=== PATIENT | female | born 1990 | race Caucasian/White ===

== ENCOUNTER 2017-01-03 14:42 | Emergency (ER) | payer SELFPAY ==
[2017-01-03] MEDS ORDERED: IBUPROFEN 600 MG TABLET PO ONE (16:21)
--- NOTE | 2017-01-03 16:28 | ER Document Report ---
ED Oral Problem - General Chief Complaint: Sore Throat Stated Complaint: SORE THROAT Information source: Patient TRAVEL OUTSIDE OF THE [place] IN LAST 30 DAYS: No - HPI Patient complains to provider of: Sore throat Onset: Yesterday Quality of pain: Achy Severity: Moderate Sore throat: Moderate Associated symptoms: denies: None, Chills, Cough, Decreased appetite, Dental decay, Difficulty speaking, Drainage, Drooling, Earache, Facial pain, Fever, Headache, Jaw pain, Short of breath, Sweaty, Toothache, Tongue swelling, Unable to swallow, White patches in mouth Notes: Patient arrives with complaints of sore throat. The sore throat started yesterday. She has been seen with her son who has similar symptoms as well. He has fever and sore throat started approximately 3 or 4 days ago. She denies any nasal congestion or cough. She denies any fevers. No rash. No difficulty breathing or swallowing. She denies any headache, blurred vision, numbness, tingling, weakness. No chest pain or shortness of breath. No abdominal pain. No nausea, vomiting, diarrhea. She has no other complaints at this time. - Related Data Allergies/Adverse Reactions: No Known Allergies Allergy (Verified 01/03/17 15:27) Past Medical History - Social History Smoking Status: Never Smoker Chew tobacco use (# tins/day): No Frequency of alcohol use: Occasional Drug Abuse: None Family History: Reviewed & Not Pertinent - Past Medical History Cardiac Medical History: Denies: Hx Coronary Artery Disease, Hx Hypertension Pulmonary Medical History: Reports: Hx Asthma, Hx Bronchitis, Hx Pneumonia Denies: Hx Tuberculosis Neurological Medical History: Denies: Hx Seizures Endocrine Medical History: Denies: Hx Diabetes Mellitus Type 1, Hx Diabetes Mellitus Type 2 Renal/ Medical History: Denies: Hx Peritoneal Dialysis Past Surgical History: Reports: Hx Appendectomy - 08/19/2010, Hx Hysterectomy. Denies: Hx Pacemaker - Immunizations Immunizations up to date: Yes Hx Diphtheria, Pertussis, Tetanus Vaccination: Yes Hx Pneumococcal Vaccination: 03/21/00 Review of Systems - Review of Systems -: Yes All other systems reviewed and negative Physical Exam - Vital signs Vitals: Temp Pulse Resp BP Pulse Ox 98.7 F 108 H 18 112/80 100 01/03/17 15:27 01/03/17 15:27 01/03/17 15:27 01/03/17 15:27 01/03/17 15:27 - Notes Notes: GENERAL: alert, cooperative, nontoxic, no distress. HEAD: normocephalic, atraumatic EYES: conjunctiva pink without discharge, no external redness or swelling. EARS: no external swelling, no external redness, no mastoid redness, swelling, tenderness. Ear canals are clear without swelling or drainage. TMs pearly robison , no redness, no bulging, normal landmarks, no perforation. NOSE: atraumatic, no external swelling. clear rhinorrhea noted. MOUTH/THROAT: mucous membranes moist and pink, posterior pharynx with erythema. Mild tonsillar swelling bilaterally. No exudate. Uvula is midline. No peritonsillar abscess. No trismus or drooling. NECK: soft, supple, full range of motion, no meningismus. Bilateral anterior cervical lymphadenopathy. CHEST: no distress, lungs clear and equal throughout. No wheezing, rales, rhonchi. CARDIAC: regular rate and rhythm, no murmur, normal capillary refill, normal pulses. No peripheral edema noted. BACK: full range of motion, no CVA tenderness. EXTREMITIES: full range of motion of all extremities. No redness, no swelling. NEURO: alert and oriented -3, no focal deficits, full range of motion of all extremities. PYSCH: appropriate mood, affect. Patient is cooperative. SKIN: pink, warm, dry, no rash. Course - Re-evaluation Re-evalutation: 01/03/17 17:43 Patient is nontoxic appearing with stable vitals. She has a positive strep. Her son is being seen as well as positive for strep as well. She will be given a shot of Bicillin L-A strep pharyngitis. DC home with instructions to take Tylenol Motrin as needed for pain. Drink plenty of fluids. Follow-up if not better in 3-5 days, sooner for increased pain, fever, difficulty breathing or swallowing, persistent vomiting, or any further concerns. The patient's emergency department workup and current diagnosis were explained to the patient and or family. Follow-up instructions were provided. Medications if prescribed were discussed. Instructions for when to return to the emergency department including specific worrisome symptoms were discussed with the patient and/or family. - Vital Signs Vital signs: Temp Pulse Resp BP Pulse Ox 98.7 F 108 H 18 112/80 100 01/03/17 15:27 01/03/17 15:27 01/03/17 15:27 01/03/17 15:27 01/03/17 15:27 Discharge - Discharge Clinical Impression: Strep pharyngitis Condition: Stable Disposition: HOME, SELF-CARE Instructions: Strep Throat (OM) Additional Instructions: Tylenol and Motrin as needed for pain. Drink plenty of fluids. Change her toothbrush in 48 hours. Follow-up if not better in 3-5 days, sooner for increased pain, fever, difficulty breathing or swallowing, persistent vomiting, or any further concerns. Forms: Return to Work
[2017-01-03] MEDS ORDERED: PENICILLIN G BENZATHINE 1.2 MILLION UNIT/2 ML DISP.SYRIN IM ONE (17:43)
[2017-01-03 19:50] VITALS: BP 107/79
== END 2017-01-03 19:18 | disposition home or self-care (01) ==
LOC: ER 14:42
DX: J02.0 Streptococcal pharyngitis (principal)
CPT/HCPCS: 99283; 96372; 87880; J0561

== ENCOUNTER 2017-09-14 20:28 | Emergency (ER) | payer MEDICAID ==
[2017-09-14] MEDS ORDERED: IPRATROPIUM/ALBUTEROL 0.5-2.5 MG/3 ML AMPUL NEB ONE (22:21)
--- NOTE | 2017-09-14 22:24 | ER Document Report ---
HPI - HPI Patient complains to provider of: Cough Onset: Last week Onset/Duration: Persistent Quality of pain: Achy Pain Level: 2 Context: Patient presents complaining of nonproductive cough for the past week with congestion. Patient went to an urgent care yesterday and was prescribed Augmentin, Tessalon Perles as well as a steroid medication. Patient denies any fever. Patient complains of persistent cough that does not allow her to rest. Patient denies any bed rest, immobilization or recent travel. Associated Symptoms: Nonproductive cough, Rhinnorhea. denies: Earache, Fever, Sore throat Exacerbated by: Denies Relieved by: Denies Similar symptoms previously: No Recently seen / treated by doctor: Yes - ROS ROS below otherwise negative: Yes Systems Reviewed and Negative: Yes All other systems reviewed and negative - CONSTITUTIONAL Constitutional: DENIES: Fever, Chills - EENT EENT: REPORTS: Nasal Drainage-Clear, Congestion - CARDIOVASCULAR Cardiovascular: DENIES: Chest pain - RESPIRATORY Respiratory: DENIES: Trouble Breathing, Coughing - GASTROINTESTINAL Gastrointestinal: DENIES: Abdominal Pain, Nausea, Patient vomiting, Diarrhea - REPRODUCTIVE Reproductive: DENIES: : - MUSCULOSKELETAL Musculoskeletal: DENIES: Back Pain, Neck Pain - DERM Skin Color: Normal Skin Problems: None Past Medical History - General Information source: Patient - Social History Smoking Status: Never Smoker Frequency of alcohol use: Occasional Drug Abuse: None Occupation: [employer] Family History: Reviewed & Not Pertinent - Past Medical History Cardiac Medical History: Denies: Hx Coronary Artery Disease, Hx Hypertension Pulmonary Medical History: Reports: Hx Asthma, Hx Bronchitis, Hx Pneumonia Denies: Hx Tuberculosis Neurological Medical History: Denies: Hx Seizures Endocrine Medical History: Denies: Hx Diabetes Mellitus Type 1, Hx Diabetes Mellitus Type 2 Renal/ Medical History: Denies: Hx Peritoneal Dialysis Past Surgical History: Reports: Hx Appendectomy - 08/19/2010, Hx Hysterectomy. Denies: Hx Pacemaker - Immunizations Immunizations up to date: Yes Hx Diphtheria, Pertussis, Tetanus Vaccination: Yes Hx Pneumococcal Vaccination: 03/21/00 Vertical Provider Document - CONSTITUTIONAL Agree With Documented VS: Yes Exam Limitations: No Limitations General Appearance: WD/WN, No Apparent Distress - INFECTION CONTROL TRAVEL OUTSIDE OF THE [place] IN LAST 30 DAYS: No - HEENT HEENT: Atraumatic, Normal ENT Exam, Normocephalic - NECK Neck: Normal Inspection, Supple. negative: Lymphadenopathy-Left, Lymphadenopathy-Right - RESPIRATORY Respiratory: No Respiratory Distress, Rhonchi - CARDIOVASCULAR Cardiovascular: Regular Rate, Regular Rhythm, No Murmur. negative: Tachycardia - BACK Back: Normal Inspection - MUSCULOSKELETAL/EXTREMETIES Musculoskeletal/Extremeties: MAEW - NEURO Level of Consciousness: Awake, Alert, Appropriate Motor/Sensory: No Motor Deficit - DERM Integumentary: Warm, Dry, No Rash Course - Re-evaluation Re-evalutation: 09/15/17 00:41 Respirations unlabored. Patient nontoxic in appearance. X-ray without any findings worrisome for pneumonia. Will treat symptomatically. Patient encouraged to continue the use of her steroid medication that she was previously prescribed. 09/15/17 01:00 Patient reports cough has markedly improved after lidocaine nebulizer. - Vital Signs Vital signs: Temp Pulse Resp BP Pulse Ox 99.0 F 80 18 120/65 98 09/14/17 20:35 09/14/17 20:35 09/14/17 20:35 09/14/17 20:35 09/14/17 20:35 - Diagnostic Test Radiology reviewed: Image reviewed, Reports reviewed Discharge - Discharge Clinical Impression: Bronchitis Condition: Stable Disposition: HOME, SELF-CARE Instructions: Bronchitis (OM), Inhaled Bronchodilators (OM) Additional Instructions: Return immediately for any new or worsening symptoms Followup with your primary care provider, call tomorrow to make a followup appointment Continue your prescription medications as previously prescribed. Prescriptions: Albuterol Sulfate [Ventolin Hfa] 2 puff IH Q4HP PRN #17 gm PRN Reason: Forms: Return to Work Referrals: ROHIT CHILD MD [Primary Care Provider] - Follow up tomorrow
--- NOTE | 2017-09-14 23:25 | RADIOLOGY REPORT (SQ) ---
EXAM DESCRIPTION: XR CHEST 2 VIEWS COMPLETED DATE/TME: 09/14/2017 22:21 CLINICAL HISTORY: 27 years, Female, cough COMPARISON: 06/08/2012 NUMBER OF VIEWS: TECHNIQUE: LIMITATIONS: None. FINDINGS: IMPRESSION: 2010 [facility] [employer]- All Rights Reserved
[2017-09-14] MEDS ORDERED: LIDOCAINE 0.5% INJ-PF (5 MG/ML) 50 ML SDV NEB ONE (23:34)
[2017-09-15 02:15] VITALS: BP 113/56
== END 2017-09-15 01:50 | disposition home or self-care (01) ==
LOC: ER 20:28
DX: J45.909 Unspecified asthma, uncomplicated (principal); R05 Cough; R09.81 Nasal congestion; R09.89 Other specified symptoms and signs involving the circulatory and respiratory systems; J34.89 Other specified disorders of nose and nasal sinuses; Z79.899 Other long term (current) drug therapy
CPT/HCPCS: 94640 ×2; 99283; 71046; J3490; J7620

== ENCOUNTER 2018-03-27 09:54 | Emergency (ER) | payer SELFPAY ==
[2018-03-27] MEDS ORDERED: ONDANSETRON HCL INJ/PF 4 MG/2 ML SDV IV ONE (10:22)
[2018-03-27] MEDS ORDERED: RINGERS SOLUTION,LACTATED 1,000 ML IV ONE (10:22)
--- NOTE | 2018-03-27 10:24 | ER Document Report ---
ED Medical Screen (RME) - General Chief Complaint: Vomiting Stated Complaint: VOMITING, BURRED VISION Time Seen by Provider: 03/27/18 10:12 Notes: RAPID MEDICAL EVALUATION DISCLOSURE I have seen this patient as part of a Rapid Medical Evaluation and, if applicable, placed any initially appropriate orders. The patient will be seen and fully evaluated, including a full history and physical exam, by a provider (in Main ED or Fast Track) when a room becomes available. 27-year-old female here with complaints of lower abdominal pain, nausea vomiting (ongoing for several weeks now), and since yesterday some vaginal spotting/dysuria. She believes she is 10 weeks however she has not yet seen an CERTIFIED REGISTERED [facility]. [facility] she has been vomiting so much she came here because that she felt like she might be dehydrated. She has not tried anything for the symptoms. Reports that she has not yet had an ultrasound. EXAM CTAB RRR Mild left/right lower quadrant and suprapubic TTP No peritoneal signs TRAVEL OUTSIDE OF THE [place] IN LAST 30 DAYS: No - Related Data Allergies/Adverse Reactions: No Known Allergies Allergy (Verified 03/27/18 09:59) Past Medical History - Social History Chew tobacco use (# tins/day): No Frequency of alcohol use: None Drug Abuse: None - Past Medical History Cardiac Medical History: Denies: Hx Coronary Artery Disease, Hx Hypertension Pulmonary Medical History: Reports: Hx Asthma, Hx Bronchitis, Hx Pneumonia Denies: Hx Tuberculosis Neurological Medical History: Denies: Hx Seizures Endocrine Medical History: Denies: Hx Diabetes Mellitus Type 1, Hx Diabetes Mellitus Type 2 Renal/ Medical History: Denies: Hx Peritoneal Dialysis Past Surgical History: Reports: Hx Appendectomy - 08/19/2010, Hx Hysterectomy. Denies: Hx Pacemaker - Immunizations Immunizations up to date: Yes Hx Diphtheria, Pertussis, Tetanus Vaccination: Yes Physical Exam - Vital signs Vitals: Temp Pulse Resp BP Pulse Ox 98.4 F 89 18 114/62 100 03/27/18 10:16 01/07/19 10:16 03/27/18 10:16 03/27/18 10:16 03/27/18 10:16 Course - Vital Signs Vital signs: Temp Pulse Resp BP Pulse Ox 98.4 F 89 18 114/62 100 03/27/18 10:16 03/27/18 10:16 03/27/18 10:16 03/27/18 10:16 03/27/18 10:16 Doctor's Discharge - Discharge Referrals: ROHIT CHILD MD [Primary Care Provider] - Follow up as needed
--- NOTE | 2018-03-27 10:58 | ER Document Report ---
ED GI/ - General Mode of Arrival: Ambulatory Information source: Patient TRAVEL OUTSIDE OF THE [place] IN LAST 30 DAYS: No <HAIDER PENDLETON - Last Filed: 03/27/18 12:50> <KATRINA GONZALEZ - Last Filed: 03/27/18 14:16> - General Chief Complaint: Vomiting Stated Complaint: VOMITING, BURRED VISION Time Seen by Provider: 03/27/18 10:12 Notes: 27-year-old female who presents to the emergency department today with complaints of a x3-4 week history of vomiting increasing over the last x2 weeks. Patient states even if she does not eat she is still having dry heaves. Patient states the vomiting seems to be worse in the morning and at night and subsides during the day. Patient complains of upper and lower abdominal pain. Patient states yesterday she noticed some vaginal spotting as there was "some light pink" when wiping. (HAIDER PENDLETON) - Related Data Allergies/Adverse Reactions: No Known Allergies Allergy (Verified 03/27/18 09:59) Past Medical History - General Information source: Patient - Social History Smoking Status: Never Smoker Cigarette use (# per day): No Chew tobacco use (# tins/day): No Frequency of alcohol use: None Drug Abuse: None Lives with: Family Family History: Reviewed & Not Pertinent Patient has suicidal ideation: No Patient has homicidal ideation: No Pulmonary Medical History: Reports: Hx Asthma, Hx Bronchitis, Hx Pneumonia Past Surgical History: Reports: Hx Appendectomy - 08/19/2010, Hx Hysterectomy - Immunizations Immunizations up to date: Yes Hx Diphtheria, Pertussis, Tetanus Vaccination: Yes Hx Pneumococcal Vaccination: 03/21/00 <HAIDER PENDLETON - Last Filed: 03/27/18 12:50> Review of Systems - Review of Systems Constitutional: No symptoms reported EENT: No symptoms reported Cardiovascular: No symptoms reported Respiratory: No symptoms reported Gastrointestinal: See HPI, Vomiting Genitourinary: No symptoms reported Female Genitourinary: See HPI, , Vaginal bleeding - spotting -- "light pink when wiping" Musculoskeletal: No symptoms reported Skin: No symptoms reported Hematologic/Lymphatic: No symptoms reported Neurological/Psychological: No symptoms reported -: Yes All other systems reviewed and negative <HAIDER PENDLETON - Last Filed: 03/27/18 12:50> Physical Exam <HAIDER PENDLETON - Last Filed: 03/27/18 12:50> - Vital signs Vitals: Temp Pulse Resp BP Pulse Ox 98.4 F 89 18 114/62 100 03/27/18 10:16 03/27/18 10:16 03/27/18 10:16 03/27/18 10:16 03/27/18 10:16 - Notes Notes: Physical Exam: General: Alert, appears well. HEENT: Normocephalic. Atraumatic. PERRL. Extraocular movements intact. Oropharynx clear. Dry mucous membranes. Neck: Supple. Non-tender. Respiratory: No respiratory distress. Clear and equal breath sounds bilaterally. Cardiovascular: Regular rate and rhythm. Abdominal: Mild epigastric tenderness to palpation. No distension. Normal Bowel Sounds. Back: Non-tender. No deformity or step off. Extremities: Moves all four extremities. Upper extremities: Normal inspection. Normal ROM. Lower extremities: Normal inspection. No edema. Normal ROM. Neurological: Normal cognition. AAOx4. Normal speech. Psychological: Normal affect. Normal Mood. Skin: Warm. Dry. Normal color. (HAIDER PENDLETON) Course - Laboratory Result Diagrams: 03/27/18 10:39 03/27/18 10:39 <HAIDER PENDLETON - Last Filed: 03/27/18 12:50> - Laboratory Result Diagrams: 03/27/18 10:39 03/27/18 10:39 - Diagnostic Test Radiology reviewed: Image reviewed - 10-week viable IUP with heart rate 179 <KATRINA GONZALEZ - Last Filed: 03/27/18 14:16> - Vital Signs Vital signs: Temp Pulse Resp BP Pulse Ox 98.4 F 89 18 114/62 100 03/27/18 10:16 03/27/18 10:16 03/27/18 10:16 03/27/18 10:16 03/27/18 10:16 - Laboratory Laboratory results interpreted by me: 03/27/18 03/27/18 03/27/18 10:39 10:39 11:40 Seg Neutrophils % 82.7 H Lymphocytes % 12.7 L Sodium 136.4 L Beta HCG, Quant [id number] H Ur Leukocyte Esterase TRACE H Discharge <HAIDER PENDLETON - Last Filed: 03/27/18 12:50> <KATRINA GONZALEZ - Last Filed: 03/27/18 14:16> - Discharge Clinical Impression: Hyperemesis gravidarum, with 10 completed weeks gestation Condition: Stable Disposition: HOME, SELF-CARE Additional Instructions: Hyperemesis Gravidarum Hyperemesis gravidarum is the medical term for severe vomiting during . We don't know exactly why it occurs, but it's a common problem. Dehydration can occur. This reduces blood flow to the placenta, decreasing the baby's nourishment. The baby will also become dehydrated. There can be harmful changes in blood sodium, potassium, or acid balance. Our goal is to correct, and prevent, dehydration. For severe cases, we give IV fluids. Antinausea medication will be prescribed. (Don't be concerned about " defects" -- the risk to you and your baby from the hyperemesis is the biggest problem. The antinausea medication is very safe at this stage of .) Call the doctor if you have vaginal bleeding, abdominal pain, severe lightheadedness or weakness, or other alarming symptoms. Prescriptions: Metoclopramide HCl [Reglan 10 mg Tablet] 1 tab PO ASDIR PRN #25 tablet PRN Reason: Referrals: [facility] [Provider Group] - Follow up as needed Scribe Attestation: 03/27/18 11:35 I personally performed the services described in the documentation, reviewed and edited the documentation which was dictated to the scribe in my presence, and it accurately records my words and actions. (KATRINA GONZALEZ) Scribe Documentation - Scribe Written by Chay:: Chay Trujillo, 03/27/2018 1253 acting as scribe for :: Joanna <HAIDER PENDLETON - Last Filed: 03/27/18 12:50>
[2018-03-27 11:04] LABS: ABSOLUTE EOSINOPHILS # (AUTO) 0.1 10^3/uL (0.0-0.6); ABSOLUTE LYMPHOCYTES (AUTO) 1.1 10^3/uL (0.5-4.7); ABSOLUTE MONOCYTES (AUTO) 0.3 10^3/uL (0.1-1.4); ABSOLUTE NEUT (AUTO) 7.2 10^3/uL (1.7-8.2); BASOPHILS % (AUTO) 0.2 % (0-2); HEMATOCRIT 40.3 % (36.0-47.0); HEMOGLOBIN 14.2 g/dL (12.0-15.5); LYMPHOCYTES % (AUTO) 12.7 % (13-45); MEAN CORPUSCULAR HEMOGLOBIN 30.9 pg (27.0-33.4); MEAN CORPUSCULAR HGB CONC 35.3 g/dL (32.0-36.0); MEAN CORPUSCULAR VOLUME 88 fl (80-97); MONOCYTES % (AUTO) 3.4 % (3-13); PLATELET COUNT 204 10^3/uL (150-450); RED CELL DISTRIBUTION WIDTH 12.9 % (11.5-14.0); SEGMENTED NEUTROPHILS % (AUTO) 82.7 % (42-78); TOTAL CELLS COUNTED % (AUTO) 100 %; WHITE BLOOD COUNT 8.8 10^3/uL (4.0-10.5)
[2018-03-27 11:26] LABS: ALANINE AMINOTRANSFERASE 13 U/L (9-52); ALBUMIN 3.9 g/dL (3.5-5.0); ALKALINE PHOSPHATASE 62 U/L (38-126); ANION GAP 9 (5-19); ASPARTATE AMINO TRANSFERASE 16 U/L (14-36); BILIRUBIN,DIRECT 0.2 mg/dL (0.0-0.4); BILIRUBIN,TOTAL 0.9 mg/dL (0.2-1.3); BLOOD UREA NITROGEN 12 mg/dL (7-20); CALCIUM 9.3 mg/dL (8.4-10.2); CARBON DIOXIDE 22 mmol/L (22-30); CHLORIDE 105 mmol/L (98-107); GLUCOSE 85 mg/dL (75-110); POTASSIUM 4.1 mmol/L (3.6-5.0); SODIUM 136.4 mmol/L (137-145); TOTAL PROTEIN 7.1 g/dL (6.3-8.2)
[2018-03-27] MEDS ORDERED: DEXTROSE 5%-LACTATED RINGERS 1,000 ML IV ONE (12:08)
[2018-03-27 12:10] LABS: APPEARANCE,URINE SLIGHTLY-CLOUDY; BILIRUBIN,URINE NEGATIVE (NEGATIVE); COLOR,URINE YELLOW; GLUCOSE, URINE NEGATIVE (NEGATIVE); KETONES,URINE NEGATIVE (NEGATIVE); LEUKOCYTE ESTERASE,URINE TRACE (NEGATIVE); NITRITE,URINE NEGATIVE (NEGATIVE); PROTEIN,URINE NEGATIVE (NEGATIVE); URINE SPECIFIC GRAVITY 1.026; UROBILINOGEN,URINE NEGATIVE mg/dL (<2.0)
--- NOTE | 2018-03-27 13:03 | RADIOLOGY REPORT (SQ) ---
EXAM DESCRIPTION: U/S [id number] TRNABD 1GES W/ODOP COMPLETED DATE/TIME: 03/27/2018 12:45 pm REASON FOR STUDY: lower abd pain, preg COMPARISON: No previous this TECHNIQUE: Transabdominal static and realtime grayscale images acquired of the pelvis. Additional se lected spectral and color Doppler images recorded. All images stored on PACs. bHCG: Not available CLINICAL DATES: Based on last menstrual period 01/10/2018, estimated due date is 10/17/2018 LIMITATIONS: None. FINDINGS: FETUS: Single Living intrauterine . ULTRASOUND EGA: 10 weeks 0 days ULTRASOUND MIGUELITO: 10/23/2018 EFW: Not applicable less than 20 weeks. CRL: 3.2 cm FHR: 173 beats per minute. SURVEY: Too early to assess. AMNIOTIC FLUID: Adequate amount. PLACENTA: Developing posteriorly SUBCHORIONIC BLEED: No SIZE OF BLEED: Not applicable. UTERUS: No masses. No anomalies. Uterus is 13 x 9 x 7 cm in size. CERVICAL LENGTH: 3.1 cm Closed. RIGHT ADNEXA: Not visualized due to limited acoustic window, pelvic bowel gas LEFT ADNEXA: Not visualized due to limited acoustic window, pelvic bowel gas FREE FLUID: None. OTHER: No other significant finding. IMPRESSION: LIVING INTRAUTERINE . EGA 10 weeks 0 days Trimester of : First - 0 to 13 weeks. TECHNICAL DOCUMENTATION: JOB ID: [id number] [employer]- All Rights Reserved Reading location - IP/workstation name: [email or web address]
[2018-03-27] MEDS ORDERED: METOCLOPRAMIDE HCL INJ/PF 10 MG/2 ML SDV IV ONE (13:08)
[2018-03-27] MEDS ORDERED: NORMAL SALINE 1000 ML 1,000 ML IV ONE (13:36)
[2018-03-27 15:04] VITALS: BP 110/58
== END 2018-03-27 15:05 | disposition home or self-care (01) ==
LOC: ER 09:54
DX: O21.0 Mild hyperemesis gravidarum (principal); Z3A.10 10 weeks gestation of pregnancy
CPT/HCPCS: 99284; 96361; 96374; 96375; 36415; 84702; 85025; 80053; 81001; 76801; J2765; J2405; J7030; J7120

== ENCOUNTER → 2018-04-10 | Outpatient (CLI) | payer SELFPAY ==
--- NOTE | 2018-04-10 16:02 | RADIOLOGY REPORT (SQ) ---
EXAM DESCRIPTION: U/S [id number] TRNABD 1GES W/ODOP COMPLETED DATE/TIME: 04/10/2018 2:36 pm REASON FOR STUDY: Z34.81 ENCOUNTER FOR SUPRVSN OF NORMAL , FIRST TRIMESTER Z34.81 ENCOUNTE R FOR SUPRVSN OF NORMAL , FIRST TRIM COMPARISON: 03/27/2018 TECHNIQUE: Transabdominal static and realtime grayscale images acquired of the pelvis. Additional se lected spectral and color Doppler images recorded. All images stored on PACs. bHCG: Not available. CLINICAL DATES: MIGUELITO: 10/17/2018. EGA: 12 weeks 6 days LIMITATIONS: None. FINDINGS: FETUS: Single Living intrauterine . ULTRASOUND EGA: 12 weeks 4 days ULTRASOUND MIGUELITO: 10/19/2018 EFW: Not applicable less than 20 weeks. CRL: 5.98 cm FHR: 157 beats per minute. SURVEY: No visualized anomalies. AMNIOTIC FLUID: Adequate amount. PLACENTA: Not yet developed due to early gestation. SUBCHORIONIC BLEED: No. SIZE OF BLEED: Not applicable. UTERUS: The uterus measures 13.6 x 9.0 x 10.5 cm. No masses. No anomalies. CERVICAL LENGTH: 3.2 cm. Closed. RIGHT ADNEXA: Not visualized due to overlying bowel gas. LEFT ADNEXA: Not visualized due to overlying bowel gas. FREE FLUID: None. OTHER: No other significant finding. IMPRESSION: LIVING INTRAUTERINE . EGA: 12 weeks 4 days Trimester of : First - 0 to 13 weeks. TECHNICAL DOCUMENTATION: JOB ID: [id number] [email or web address] All Rights Reserved Reading location - IP/workstation name: [email or web address]
== END ==
LOC: RAD 16:23
PROVIDERS: ATTEND Nurse Practitioner
DX: Z34.81 Encounter for supervision of other normal pregnancy, first trimester (principal)
CPT/HCPCS: 76801

== ENCOUNTER 2018-06-08 14:35 | Emergency (ER) | payer MEDICAID ==
--- NOTE | 2018-06-08 16:28 | ER Document Report ---
ED Respiratory Problem - General Chief Complaint: Shortness Of Breath Stated Complaint: DIFFICULTY BREATHING Time Seen by Provider: 06/08/18 16:25 Primary Care Provider: JOE LANDEROS APRN [Primary Care Provider] - Follow up in 3-5 days Mode of Arrival: Ambulatory Information source: Patient Notes: 28-year-old female presented to ED for complaint of cough congestion short of breath using her inhaler. She states she went to the [facility] and she told her to come to the emergency room because she was not comfortable with asthma exacerbation. She is alert oriented respirations regular and unlabored lungs are clear to auscultation and speaking in a full sentence. TRAVEL OUTSIDE OF THE [place] IN LAST 30 DAYS: No - HPI Patient complains to provider of: Cough, Short of breath Onset: Other - Tuesday Duration: Intermittent episodes Initiating Event: URI Quality of pain: No pain Severity: None Pain Level: Denies Context: Other - Short of breath she is 21 weeks has a cold and is care in her high Cough: Nonproductive Associated symptoms: Chest pain/discomfort, Congestion, Cough, PND, Runny nose, Sinus pain/pressure Worsened by: laying down Similar symptoms previously: Yes Recently seen / treated by doctor: Yes - Related Data Allergies/Adverse Reactions: No Known Allergies Allergy (Verified 03/27/18 09:59) Past Medical History - General Information source: Patient - Social History Smoking Status: Never Smoker Cigarette use (# per day): No Chew tobacco use (# tins/day): No Smoking Education Provided: No Frequency of alcohol use: None Drug Abuse: None Lives with: Family Family History: Reviewed & Not Pertinent Patient has suicidal ideation: No Patient has homicidal ideation: No - Past Medical History Cardiac Medical History: Reports: None Pulmonary Medical History: Reports: Hx Asthma, Hx Bronchitis, Hx Pneumonia EENT Medical History: Reports: None Neurological Medical History: Reports: None Endocrine Medical History: Reports: None Renal/ Medical History: Reports: None Malignancy Medical History: Reports: None GI Medical History: Reports: None Musculoskeletal Medical History: Reports None Skin Medical History: Reports None Psychiatric Medical History: Reports: None Traumatic Medical History: Reports: None Infectious Medical History: Reports: None Past Surgical History: Reports: Hx Appendectomy - 08/19/2010, Hx Hysterectomy - Immunizations Immunizations up to date: Yes Hx Diphtheria, Pertussis, Tetanus Vaccination: Yes Hx Pneumococcal Vaccination: 03/21/00 Review of Systems - Review of Systems Constitutional: No symptoms reported EENT: Nose congestion, Nose discharge, Sinus pressure, Sinus discharge Cardiovascular: No symptoms reported Respiratory: Cough. denies: Wheezing Gastrointestinal: No symptoms reported Genitourinary: No symptoms reported Female Genitourinary: No symptoms reported Musculoskeletal: No symptoms reported Skin: No symptoms reported Hematologic/Lymphatic: No symptoms reported Neurological/Psychological: No symptoms reported -: Yes All other systems reviewed and negative Physical Exam - Vital signs Vitals: Temp Pulse Resp BP Pulse Ox 98.1 F 93 16 122/69 100 06/08/18 15:05 06/08/18 15:05 06/08/18 15:05 06/08/18 15:05 06/08/18 15:05 Interpretation: Normal - General General appearance: Appears well, Alert - HEENT Head: Normocephalic, Atraumatic Eyes: Normal Pupils: PERRL Ears: Normal External canal: Normal Tympanic membrane: Normal Sinus: Normal Nasal: Purulent discharge, Swelling Mouth/Lips: Normal Pharynx: Post nasal drainage Neck: Normal - Respiratory Respiratory status: No respiratory distress Chest status: Nontender Breath sounds: Nonproductive cough. No: Productive cough, Rales, Rhonchi, Stridor, Wheezing Chest palpation: Normal - Cardiovascular Rhythm: Regular Heart sounds: Normal auscultation Murmur: No - Abdominal Inspection: Normal Distension: No distension Bowel sounds: Normal Tenderness: Nontender Organomegaly: No organomegaly - Back Back: Normal, Nontender - Extremities General upper extremity: Normal inspection, Nontender, Normal color, Normal ROM, Normal temperature General lower extremity: Normal inspection, Nontender, Normal color, Normal ROM, Normal temperature, Normal weight bearing. No: Mary's sign - Neurological Neuro grossly intact: Yes Cognition: Normal Orientation: AAOx4 [place] Coma Scale Eye Opening: Spontaneous [place] Coma Scale Verbal: Oriented Shantal Coma Scale Motor: Obeys Commands Hastings Coma Scale Total: 15 Speech: Normal Motor strength normal: LUE, RUE, LLE, RLE Sensory: Normal - Psychological Associated symptoms: Normal affect, Normal mood - Skin Skin Temperature: Warm Skin Moisture: Dry Skin Color: Normal Course - Re-evaluation Re-evalutation: 06/08/18 16:57 Assessment consistent with a normal upper respiratory infection in a girl with no wheezing no shortness of breath speaking in rapid full sentences no dyspnea and no pain at this time. Patient was discharged home to follow-up with her primary care doctor. Patient was instructed on when to use her inhaler and when to return to the ED. - Vital Signs Vital signs: Temp Pulse Resp BP Pulse Ox 98.1 F 93 16 122/69 100 06/08/18 15:05 06/08/18 15:05 06/08/18 15:05 06/08/18 15:05 06/08/18 15:05 Discharge - Discharge Clinical Impression: uri during , hx of asthma Condition: Stable Disposition: HOME, SELF-CARE Additional Instructions: UPPER RESPIRATORY ILLNESS: You have a viral infection of the respiratory passages -- a "cold." This common infection causes nasal congestion, drainage, and often sore throat and cough. It is highly contagious. The disease usually lasts about 10 to 14 days. There is no "cure" for the viral infection -- it must run its course. If there is a complication, such as bacterial infection in the nose, sinuses, middle ear, or bronchial tubes, antibiotics may be required. The antibiotics won't affect the virus. Drink plenty of fluids. A humidifier may help. An expectorant medication or decongestant may make you more comfortable. Use acetaminophen or ibuprofen for fever or aches. See the doctor if fever persists over two days, if there is any significant worsening of your symptoms, or if you simply fail to improve as expected. USE OF ACETAMINOPHEN (Tylenol): Acetaminophen may be taken for pain relief or fever control. It's much safer than aspirin, offering a wider range of "safe" dosages. It is safe during . Some brand names are Tylenol, Panadol, Datril, Anacin 3, Tempra, and Liquiprin. Acetaminophen can be repeated every four hours. The following are maximum recommended dosages: >89 pounds or adults 650 mg to 900 mg Acetaminophen can be repeated every four hours. Maximum dose not to exceed 4000 mg a day. Use medication on your list that was provided by the [facility]. At this time you have an upper respiratory infection. This is a cough or cold. If you do become very short of breath where you cannot get your breath you are not able to speak in full sentences or any other concerns you can always come back to the emergency room at this time it is an upper respiratory infection. FOLLOW-UP CARE: If you have been referred to a physician for follow-up care, call the physicians office for an appointment as you were instructed or within the next two days. If you experience worsening or a significant change in your symptoms, notify the physician immediately or return to the Emergency Department at any time for re-evaluation. Referrals: JOE LANDEROS, [facility] [Primary Care Provider] - Follow up in 3-5 days
[2018-06-08 16:52] VITALS: BP 119/70
== END 2018-06-08 16:29 | disposition home or self-care (01) ==
LOC: ER 14:35
DX: O26.892 Other specified pregnancy related conditions, second trimester (principal); J06.9 Acute upper respiratory infection, unspecified; O99.512 Diseases of the respiratory system complicating pregnancy, second trimester; R06.02 Shortness of breath; R05 Cough; R09.81 Nasal congestion; R09.82 Postnasal drip; R51 Headache; R07.9 Chest pain, unspecified; Z3A.21 21 weeks gestation of pregnancy
CPT/HCPCS: 99283

== ENCOUNTER 2018-09-14 21:46 | Outpatient (CLI) | payer MEDICAID ==
[2018-09-14] MEDS ORDERED: ONDANSETRON 4 MG TAB.RAPDIS ONE (22:35)
[2018-09-14 22:41] LABS: AMORPHOUS SEDIMENT,URINE TRACE /HPF; APPEARANCE,URINE CLOUDY; BILIRUBIN,URINE NEGATIVE (NEGATIVE); COLOR,URINE YELLOW; GLUCOSE, URINE NEGATIVE (NEGATIVE); KETONES,URINE NEGATIVE (NEGATIVE); LEUKOCYTE ESTERASE,URINE LARGE (NEGATIVE); NITRITE,URINE NEGATIVE (NEGATIVE); PROTEIN,URINE NEGATIVE (NEGATIVE); URINE SPECIFIC GRAVITY 1.005; UROBILINOGEN,URINE NEGATIVE mg/dL (<2.0)
[2018-09-14] MEDS ORDERED: ONDANSETRON 4 MG TAB.RAPDIS PO ONE (22:50)
[2018-09-14 23:03] LABS: URINE AMPHETAMINES SCREEN NEGATIVE; URINE BARBITURATES SCREEN NEGATIVE; URINE BENZODIAZEPINES SCREEN NEGATIVE; URINE COCAINE SCREEN NEGATIVE; URINE MARIJUANA (THC) SCREEN NEGATIVE; URINE METHADONE SCREEN NEGATIVE; URINE PHENCYCLIDINE SCREEN NEGATIVE
--- NOTE | 2018-09-15 02:54 | Non Stress Test Report ---
Non Stress Test Datetime Report Generated by CPN: 09/15/2018 02:54 DEMOGRAPHIC EGA NST: 35.2 INDICATION Indication for Study: Ordered by Provider MONITORING Monitor Explained: Monitor Explained; Test Explained; Patient Verbalized Understanding Time on Monitor: 09/14/2018 22:04 Time off Monitor: 09/15/2018 02:33 NST Duration: 269 NST INTERVENTIONS NST Interventions: PO Hydration Physician Notified NST: Dr. Bradley BABY A: [id number] BABY A Movement : Present Contraction Frequency : 2-10 FHR Baseline : 140 Accelerations : 15X15 Decelerations : None Variability : Moderate 6-25bpm NST Review: Meets Criteria for Reactive NST NST Review and Verified By : COLLIN Souza Results: Reactive NST REPORT Report Trigger: Send Report
[2018-09-15 05:14] LABS: CHLAM PCR NOT DETECTED (NOT DETECT)
== END 2018-09-15 02:40 | disposition home or self-care (01) ==
LOC: LC 21:46
PROVIDERS: ATTEND Obstetrics & Gynecology Gynecology
PROC: 4A1HXCZ Monitoring of Products of Conception, Cardiac Rate, External Approach (ICD-10-PCS; principal; 2018-09-14)
DX: O47.03 False labor before 37 completed weeks of gestation, third trimester (principal); O26.893 Other specified pregnancy related conditions, third trimester; M54.9 Dorsalgia, unspecified; O21.9 Vomiting of pregnancy, unspecified; Z3A.35 35 weeks gestation of pregnancy
CPT/HCPCS: 81001; 87081; 80307; 87491; 87591; 59025; S0119

== ENCOUNTER → 2018-09-18 | Outpatient (CLI) | payer MEDICAID ==
[2018-09-18 12:51] LABS: AMORPHOUS SEDIMENT,URINE TRACE /HPF; APPEARANCE,URINE TURBID; BILIRUBIN,URINE NEGATIVE (NEGATIVE); GLUCOSE, URINE NEGATIVE (NEGATIVE); KETONES,URINE NEGATIVE (NEGATIVE); LEUKOCYTE ESTERASE,URINE MODERATE (NEGATIVE); NITRITE,URINE NEGATIVE (NEGATIVE); PROTEIN,URINE NEGATIVE (NEGATIVE); URINE SPECIFIC GRAVITY 1.018; UROBILINOGEN,URINE NEGATIVE mg/dL (<2.0)
[2018-09-18 12:52] LABS: COLOR,URINE YELLOW
[2018-09-18 13:05] LABS: URINE AMPHETAMINES SCREEN NEGATIVE; URINE BARBITURATES SCREEN NEGATIVE; URINE BENZODIAZEPINES SCREEN NEGATIVE; URINE COCAINE SCREEN NEGATIVE; URINE MARIJUANA (THC) SCREEN NEGATIVE; URINE METHADONE SCREEN NEGATIVE; URINE PHENCYCLIDINE SCREEN NEGATIVE
--- NOTE | 2018-09-18 13:58 | Non Stress Test Report ---
Non Stress Test Datetime Report Generated by CPN: 09/18/2018 13:58 DEMOGRAPHIC EGA NST: 35.6 INDICATION Indication for Study: Other Indication for Study (NST) Other: contractions VITAL SIGNS Temperature - NST: 98.2 RESP - NST: 15 MONITORING Monitor Explained: Monitor Explained; Test Explained; Patient Verbalized Understanding Time on Monitor: 09/18/2018 12:41 Time off Monitor: 09/18/2018 13:55 NST Duration: 74 NST INTERVENTIONS NST Interventions: PO Hydration Physician Notified NST: C Nieves CNM BABY A: [id number] BABY A Movement : Present Contraction Frequency : intermittent FHR Baseline : 140 Accelerations : 15X15 Decelerations : None Variability : Moderate 6-25bpm NST Review: Meets Criteria for Reactive NST NST Review and Verified By : Keith Sequeira RN NST Results: Reactive NST REPORT Report Trigger: Send Report
== END ==
LOC: LC 12:13
PROVIDERS: ATTEND Obstetrics & Gynecology
PROC: 4A1HXCZ Monitoring of Products of Conception, Cardiac Rate, External Approach (ICD-10-PCS; principal; 2018-09-18)
DX: Z34.93 Encounter for supervision of normal pregnancy, unspecified, third trimester (principal)
CPT/HCPCS: 59025; 80307; 81001

== ENCOUNTER 2018-10-11 07:13 | Inpatient (IN) | payer MEDICAID ==
[2018-10-10 11:17] LABS: ABSOLUTE EOSINOPHILS # (AUTO) 0.1 10^3/uL (0.0-0.6); ABSOLUTE LYMPHOCYTES (AUTO) 1.3 10^3/uL (0.5-4.7); ABSOLUTE MONOCYTES (AUTO) 0.4 10^3/uL (0.1-1.4); ABSOLUTE NEUT (AUTO) 6.2 10^3/uL (1.7-8.2); BASOPHILS % (AUTO) 0.2 % (0-2); EOSINOPHILS % (AUTO) 1.2 % (0-6); HEMOGLOBIN 13.3 g/dL (12.0-15.5); LYMPHOCYTES % (AUTO) 16.6 % (13-45); MEAN CORPUSCULAR HEMOGLOBIN 30.5 pg (27.0-33.4); MEAN CORPUSCULAR HGB CONC 34.2 g/dL (32.0-36.0); MEAN CORPUSCULAR VOLUME 89 fl (80-97); MONOCYTES % (AUTO) 4.8 % (3-13); PLATELET COUNT 176 10^3/uL (150-450); RED BLOOD COUNT 4.36 10^6/uL (3.72-5.28); RED CELL DISTRIBUTION WIDTH 13.7 % (11.5-14.0); SEGMENTED NEUTROPHILS % (AUTO) 77.2 % (42-78); TOTAL CELLS COUNTED % (AUTO) 100 %
[2018-10-10 11:55] LABS: APPEARANCE,URINE SLIGHTLY-CLOUDY; BILIRUBIN,URINE NEGATIVE (NEGATIVE); COLOR,URINE YELLOW; GLUCOSE, URINE NEGATIVE (NEGATIVE); KETONES,URINE NEGATIVE (NEGATIVE); LEUKOCYTE ESTERASE,URINE LARGE (NEGATIVE); NITRITE,URINE NEGATIVE (NEGATIVE); PROTEIN,URINE NEGATIVE (NEGATIVE); URINE SPECIFIC GRAVITY 1.019; UROBILINOGEN,URINE NEGATIVE mg/dL (<2.0)
[2018-10-10 12:05] LABS: URINE AMPHETAMINES SCREEN NEGATIVE; URINE BARBITURATES SCREEN NEGATIVE; URINE BENZODIAZEPINES SCREEN NEGATIVE; URINE COCAINE SCREEN NEGATIVE; URINE MARIJUANA (THC) SCREEN NEGATIVE; URINE METHADONE SCREEN NEGATIVE; URINE PHENCYCLIDINE SCREEN NEGATIVE
[~2018-10-11 07:13] MED LIST: CEFAZOLIN 1 GM/D5W RTU 1 GM/50 ML RTUPB IV PRN; LIDOCAINE 0.5% INJ-PF (5 MG/ML) 50 ML SDV SUBCUT PRN
[2018-10-11] MEDS: LACTATED RINGERS 1000 ML IV PRN ×2 (08:45→19:50)
[2018-10-11] MEDS ORDERED: OXYTOCIN 10 UNIT/ML VIAL ONE ×2 (09:44→09:46)
[2018-10-11] MEDS ORDERED: EPHEDRINE SULFATE INJ 50 MG/1 ML AMPULE ONE (09:45)
[2018-10-11] MEDS ORDERED: FENTANYL CITRATE INJ/PF 100 MCG/2 ML AMPUL ONE (09:45)
[2018-10-11] MEDS ORDERED: MIDAZOLAM 2 MG/2 ML INJ ONE (09:45)
[2018-10-11] MEDS ORDERED: OXYTOCIN/NORMAL SALINE 20 UNIT/1,000 ML RTUINJ ONE (09:45)
[2018-10-11] MEDS ORDERED: ONDANSETRON HCL INJ/PF 4 MG/2 ML SDV ONE (09:45)
[2018-10-11] MEDS ORDERED: ACETAMINOPHEN 1,000 MG/100 ML RTUPB IV ONE (09:45)
[2018-10-11] MEDS ORDERED: KETOROLAC TROMETHAMINE INJ/PF 30 MG/1 ML SDV ONE (09:45)
[2018-10-11] MEDS ORDERED: CEFAZOLIN INJ 1 GM VIAL ONE (10:10)
[2018-10-11] MEDS ORDERED: OXYCODONE-ACETAMINOPHEN 5-325 MG TABLET PO PRN ×3 (11:10→12:11)
[2018-10-11] MEDS ORDERED: MEPERIDINE HCL/PF INJ 25 MG/1 ML DISP.SYRIN IV PRN (11:10)
[2018-10-11] MEDS ORDERED: MORPHINE SULFATE 10 MG/ML INJ IV PRN (11:10)
[2018-10-11] MEDS ORDERED: FENTANYL CITRATE INJ/PF 100 MCG/2 ML AMPUL IV PRN ×3 (11:10)
[2018-10-11] MEDS ORDERED: DIPHENHYDRAMINE HCL 50 MG/ML VIAL IV PRN (11:10)
[2018-10-11] MEDS ORDERED: PROMETHAZINE HCL INJ 25 MG/1 ML VIAL IV PRN ×3 (11:10→12:11)
--- NOTE | 2018-10-11 11:35 | Brief Operative Note ---
BRIEF OPERATIVE REPORT DATE OF SURGERY: 10/11/18 TIME OF SURGERY: 10:00 PREOPERATIVE DIAGNOSIS: , 39+1ega, History of 4th Degree perineal laceration with 7#12oz baby, Asthma POSTOPERATIVE DIAGNOSIS: SKY - meconium SURGEON: HUSSEIN GALVEZ FINDINGS: normal uterus, normal bilateral tubes/ovaries, Female infant time of 1048, Apgars 9/9, weight 7#. IVF 2000ml, UOP 200ml. Interceed used. Meconium noted at [facility]. COMPLICATIONS: None ESTIMATED BLOOD LOSS: 500ml TISSUE REMOVED OR ALTERED: placenta and cord - not sent to pathology TECHNICAL PROCEDURE: Primary Section
[2018-10-11] MEDS ORDERED: RINGERS SOLUTION,LACTATED 1,000 ML IV PRN (12:11)
[2018-10-11] MEDS ORDERED: ACETAMINOPHEN 1,000 MG/100 ML RTUPB IV PRN (12:11)
[2018-10-11] MEDS ORDERED: OXYTOCIN/NORMAL SALINE 20 UNIT/1,000 ML RTUINJ IV PRN (12:11)
[2018-10-11] MEDS ORDERED: SIMETHICONE 80 MG TAB.CHEW PO PRN (12:11)
[2018-10-11] MEDS ORDERED: ACETAMINOPHEN 325 MG TABLET PO PRN (12:11)
[2018-10-11] MEDS ORDERED: MEASLES,MUMPS&RUBELLA VACC/PF 0.5 ML VIAL SUBCUT PRN (12:11)
[2018-10-11] MEDS: FENTANYL CITRATE INJ/PF 100 MCG/2 ML AMPUL ONE ×3 (12:45→13:02)
[2018-10-11] MEDS: HYDROMORPHONE HCL INJ/PF 2 MG/ML AMPULE IV PRN ×2 (14:59→23:46)
[2018-10-11] MEDS: KETOROLAC TROMETHAMINE INJ/PF 30 MG/1 ML SDV IV SCH (18:28)
[2018-10-11] MEDS: DOCUSATE SODIUM 100 MG CAPSULE PO SCH (18:28)
--- NOTE | 2018-10-11 21:25 | PDOC DELIVERY SUMMARY ---
Delivery Summary - Maternal Hx : II Hx Para: I Hx # Term Pregnancies: 1 Hx # Pregnancies: 0 Hx Total # of Abortions (Sponateous & Elective): 0 Number of Living Children: 1 MIGUELITO: 10/17/18 Gestational Age: 39+1 Risk Factors: Other - history of fourth degree perineal laceration Ruptured Membranes: [facility] Time of Rupture: 10:48 Fluids: Meconium Stained - Delivery Labor: Not In Labor Presentation: Vertex Heart Rate Monitoring: Done Pre-Operatively Support Person Present: Yes Location: OR : Scheduled Placenta: Within Normal Limits Placenta Description: normal Number of Vessels (Cord): 1 Nuchal Cord: No Delivery of Placenta Date: 10/11/18 Delivery of Placenta Time: 10:49 Estimated Blood Loss: 500 Delivery Quantitative Blood Loss (QBL): 500 Delivery QBL Comment: suspect this should be more - Medications Type of Anesthesia:: Spinal - Infant Assess and Care Baby 1 Female Delivery of Date: 10/11/18 Delivery of Infant Time: 10:48 at 1 minute: 9 at 5 minutes: 9 Preprinted Number On Band: [id number] Skin to Skin: Yes Skin to Skin (Mins): 10 To Nursery At: 11:15 Mode of Transport: Bassinet Delivery Weight: 31.6 Delivery Length: 19.5 in - Delivery Personnel Indoor Landscaper/Gardener: KHURRAM SHEEHAN Nursery RN: JUAN RUSH Nursery RN: LASHONDA KOHLER RN: SP LINO MD: HUSSEIN GALVEZ
--- NOTE | 2018-10-11 23:28 | Operative Report ---
Operative Report DATE OF SURGERY: 10/11/18 PREOPERATIVE DIAGNOSIS: , 39+1ega, History of 4th Degree perineal lacera tion with 7#12oz baby, Asthma POSTOPERATIVE DIAGNOSIS: SKY - meconium OPERATION: Primary Section SURGEON: HUSSEIN GALVEZ ANESTHESIA: Spinal TISSUE REMOVED OR ALTERED: placenta and cord - not sent to pathology COMPLICATIONS: None ESTIMATED BLOOD LOSS: 500ml INTRAOPERATIVE FINDINGS: normal uterus, normal bilateral tubes/ovaries, Female time of 1048, Apgars 9/9, weight 7#. IVF 2000ml, UOP 200ml. Interceed used. Meconium noted at [facility]. PROCEDURE: Anesthesia provider: [Cori MCKEON, Maxine Diamond CRNA] Urine output: [200ml] IV fluids: [2000ml] Indications: [28yo at 39+1ega presents for scheduled section due to history of 4th degree laceration (with continued incontinence from prior repair). Her prior baby was 7#12oz and this baby is not projected to be the same size. She was counseled regarding her current incontinence and prior 4th degree and risk of recurrance even with smaller baby. She desires to proceed with planned primary section in order to not worsen current incontinence and to not have recurrance of 4th degree laceration. The risks, benefits, alternatives were reviewed and she desires to proceed with planned procedure. ] Procedure: The patient was taken to the operating room where spinal anesthesia was obtained and found to be adequate. She was then prepped and draped in the normal sterile fashion and placed in the dorsal supine position with a leftward tilt. A Pfannenstiel skin incision was then made and carried through to the underlying layers of the fascia with the scalpel. The fascia was incised in the midline and the incision extended laterally with the Gauthier scissors. The superior aspect of the fascial incision was then grasped with Ginny clamps elevated and the underlying rectus muscles dissected off [bluntly]. Attention was then turned to the inferior aspect of the fascial incision which in a similar fashion was grasped, tented up with Ginny clamps, and the rectus muscles dissected off [bluntly]. The rectus muscles were then in the midline and the peritoneum at the amount identified and entered [bluntly]. The peritoneal incision was then extended superiorly and inferiorly with good visualization of the bladder. The bladder blade was inserted and the vesicouterine peritoneum identified grasped with [place]ian pickups and entered sharply with the Metzenbaum scissors. This incision was then extended laterally with the Metzenbaum scissors and a bladder flap created digitally. The bladder blade was then reinserted and the lower uterine segment incised in a transverse fashion with the scalpel. The uterine incision was then extended bluntly. The bladder blade was removed and the infant's head was delivered from cephalic presentation atraumatically. The nose and mouth were suctioned and the cord doubly clamped and cut. And the was handed off to waiting pediatricians. The placenta was then delivered spontaneously and the uterus exteriorized and cleared of all clots and debris. The uterine incision was then repaired with 1- 0 Vicryl in a running locked fashion. A second layer of the same suture was used to obtain hemostasis via imbrication of the initial layer. The bladder flap was then repaired with 3-0 chromic in a running fashion. The uterus was returned to the patient's abdomen and Interceed was placed overlying the uterine incision to prevent adhesions. The gutters were cleared of all clots and debris. All operative sites were noted to be hemostatic. The fascia was reapproximated with 0 Vicryl in a running fashion from each lateral edge to the midline. The skin was closed with 3-0 Monocryl in a running subcuticular fashion with overlying Dermabond for additional dressing as well as wound closure. The patient tolerated the procedure well. Sponge lap needle and instrument counts are correct times 2. 2 g of Ancef were given prior to skin incision. The patient was taken to the recovery area awake and in stable condition.
[2018-10-12] MEDS: KETOROLAC TROMETHAMINE INJ/PF 30 MG/1 ML SDV IV SCH ×2 (03:15→09:31)
[2018-10-12 07:30] LABS: HEMATOCRIT 30.5 % (36.0-47.0); MEAN CORPUSCULAR HEMOGLOBIN 31.3 pg (27.0-33.4); MEAN CORPUSCULAR HGB CONC 34.7 g/dL (32.0-36.0); MEAN CORPUSCULAR VOLUME 90 fl (80-97); PLATELET COUNT 135 10^3/uL (150-450); RED BLOOD COUNT 3.38 10^6/uL (3.72-5.28); RED CELL DISTRIBUTION WIDTH 13.5 % (11.5-14.0); WHITE BLOOD COUNT 9.2 10^3/uL (4.0-10.5)
[2018-10-12 07:33] LABS: HEMOGLOBIN 10.6 g/dL (12.0-15.5)
[2018-10-12] MEDS: OXYCODONE-ACETAMINOPHEN 5-325 MG TABLET PO PRN ×2 (07:48→17:21)
--- NOTE | 2018-10-12 09:29 | PDOC PROGRESS REPORT ---
Subjective-OB Progress Note for:: 10/12/18 Physical Exam (OB) Vital Signs: Temp Pulse Resp BP Pulse Ox 98.1 F 59 L 16 98/51 L 100 10/12/18 07:31 10/12/18 07:31 10/12/18 07:31 10/12/18 07:31 10/12/18 07:31 Intake & Output 10/11/18 10/12/18 10/13/18 06:59 06:59 06:59 Intake Total 4300 Output Total 1470 Balance 2830 Weight 79.38 kg 79.38 kg - Lochia Lochia Amount: Scant < 10 ml Lochia Color: Rubra/Red - Abdomen Description: Soft, Round Hernia Present: No Bowel Sounds: Normoactive Flatus Presence: Present Stool: No Fundal Description: Firm, Midline Fundal Height: u/u - u/2 Objective-Diagnostic Laboratory: 10/12/18 07:04 10/12/18 10/12/18 07:04 07:04 WBC 9.2 RBC 3.38 L Hgb 10.6 L D Hct 30.5 L MCV 90 MCH 31.3 MCHC 34.7 RDW 13.5 Plt Count 135 L Blood Type Cancelled
[2018-10-12] MEDS: DOCUSATE SODIUM 100 MG CAPSULE PO SCH ×2 (09:31→17:18)
[2018-10-12] MEDS: PRENATAL VITAMIN W DHA CAPSULE PO SCH (09:31)
[2018-10-12] MEDS: IBUPROFEN 800 MG TABLET PO SCH ×2 (15:13→21:51)
[2018-10-13] MEDS: IBUPROFEN 800 MG TABLET PO SCH ×2 (03:00→09:21)
[2018-10-13] MEDS: OXYCODONE-ACETAMINOPHEN 5-325 MG TABLET PO PRN (07:28)
[2018-10-13] MEDS: DOCUSATE SODIUM 100 MG CAPSULE PO SCH (09:22)
[2018-10-13] MEDS: PRENATAL VITAMIN W DHA CAPSULE PO SCH (09:22)
--- NOTE | 2018-10-13 09:47 | PDOC PROGRESS REPORT ---
Subjective-OB Progress Note for:: 10/13/18 Subjective: Doing well, no c/o, pain managed, hsb at BS, no c/o, bottle feeding, scant bleeding Physical Exam (OB) Vital Signs: Temp Pulse Resp BP Pulse Ox 98.3 F 67 16 114/59 L 100 10/13/18 07:19 10/13/18 07:19 10/13/18 07:19 10/13/18 07:19 10/13/18 07:19 Intake & Output 10/12/18 10/13/18 10/14/18 06:59 06:59 06:59 Intake Total 4300 500 Output Total 1470 Balance 2830 500 Weight 79.38 kg - Lochia Lochia Amount: Scant < 10 ml Lochia Color: Rubra/Red - Abdomen Description: Soft Hernia Present: No Fundal Description: Firm, Midline Fundal Height: u/u - u/2 Objective-Diagnostic Laboratory: 10/12/18 07:04 Assessment and Plan(PN) - Assessment and Plan (1) Anemia Qualifiers: Other causes of anemia: acute posthemorrhagic Is this a current diagnosis for this admission?: Yes (2) History of fourth degree perineal laceration Is this a current diagnosis for this admission?: Yes (3) S/P primary low transverse Is this a current diagnosis for this admission?: Yes - Time Spent with Patient Time with patient: Less than 15 minutes Medications reviewed and adjusted accordingly: Yes - Disposition Anticipated Discharge: Home Within: within 24 hours
--- NOTE | 2018-10-13 09:53 | PDOC DISCHARGE SUMMARY ---
Final Diagnosis Discharge Date: 10/13/18 - Final Diagnosis (1) Anemia Is this a current diagnosis for this admission?: Yes (2) History of fourth degree perineal laceration Is this a current diagnosis for this admission?: Yes (3) S/P primary low transverse Is this a current diagnosis for this admission?: Yes Discharge Data - Discharge Medication Prescriptions: Oxycodone HCl/Acetaminophen [Percocet 5-325 mg Tablet] 1 tab PO Q4HP PRN #20 tablet PRN Reason: Ibuprofen [Motrin 800 mg Tablet] 800 mg PO Q6A #60 tablet Home Medications: Vit,Calc76/Iron/Folic [Prenatabs Rx Tablet] 1 tab PO DAILY 09/18/18 Albuterol Sulfate [Proair Respiclick] 90 mcg IH 10/10/18 Ibuprofen [Motrin 800 mg Tablet] 800 mg PO Q6A #60 tablet 10/13/18 Oxycodone HCl/Acetaminophen [Percocet 5-325 mg Tablet] 1 tab PO Q4HP PRN #20 tablet 10/13/18 Gestational Age: 39 Reason(s) for Admission: Ceasarean Section-Primary Procedures: NST, Ultrasound Intrapartum Procedure(s): : Low Cervical, Transverse - [place] Data Baby 1 Female Home with Mother: Yes Complications: No - Diagnosis Test Laboratory: Temp Pulse Resp BP Pulse Ox 98.3 F 67 16 114/59 L 100 10/13/18 07:19 10/13/18 07:19 10/13/18 07:19 10/13/18 07:19 10/13/18 07:19 10/10/18 10/10/18 10/12/18 10:40 10:44 07:04 RBC 4.36 3.38 L Hgb 13.3 10.6 L D Hct 39.0 30.5 L Urine Opiates Screen NEGATIVE - Discharge information/Instructions Discharge Activity: Activity As Tolerated, Balance Activity w/Rest, No Lifting Over 10 Pounds, No Lifting/Push/Pulling, Pelvic Rest Discharge Diet: As Tolerated, Regular Disposition: HOME, SELF-CARE Follow up with: [facility] in: 1, Weeks
[2018-10-13 10:35] VITALS: BP 115/73
== END 2018-10-13 13:59 | disposition home or self-care (01) | DRG 787 ==
LOC: 2N 07:13
PROVIDERS: ADMIT Student in an Organized Health Care Education/Training Program; ATTEND Student in an Organized Health Care Education/Training Program
PROC: 10D00Z1 Extraction of Products of Conception, Low, Open Approach (ICD-10-PCS; principal; 2018-10-11 10:15)
DX: O90.81 Anemia of the puerperium (principal); D62 Acute posthemorrhagic anemia; Z3A.39 39 weeks gestation of pregnancy; Z37.0 Single live birth
CPT/HCPCS: 1961; 36415; 59025; 80307; 81001; 85025; 85027; 86850; 86870; 86900; 86901; 86920; 86922; 94799; C1765; J0131; J0690; J1170; J1885; J2250; J2405; J2550; J2590; J3010; J3490; J7120